=== PATIENT | male | born 1980 | race Caucasian/White ===

== ENCOUNTER → 2017-08-09 | Outpatient (CLI) | payer OTHER ==
[~2017-08-09] MED LIST: CIPRO500 MG PO; PERCOCET PO; PROMS25 WY RECTAL; ZANTAC 150MG T150 MG PO; ZOFRAN ODT4 MG PO
[2017-08-09 10:21] LABS: ALBUMIN 3.8 g/dL (3.4-5.0); CALCIUM 8.5 mg/dL (8.5-10.1); CREATININE 1.2 mg/dL (0.6-1.3); POTASSIUM 3.6 mmol/L (3.5-5.1); TOTAL BILIRUBIN 0.6 mg/dL (<0.1-1.0)
== END ==
LOC: M.ULTRA 09:54
PROVIDERS: Urology
DX: C64.2 Malignant neoplasm of left kidney, except renal pelvis (principal); I89.0 Lymphedema, not elsewhere classified